=== PATIENT | male | born 1960 | race Caucasian/White ===

== ENCOUNTER 2021-05-18 12:54 | Observation (INO) | payer BC ==
[2021-05-18] MEDS ORDERED: Acetaminophen 650 MG Suppository PR PRN (15:24)
[2021-05-18] MEDS ORDERED: Ondansetron ODT 4 MG TAB PO PRN (15:24)
[2021-05-18] MEDS ORDERED: Acetaminophen 325 MG TAB PO PRN (15:24)
[2021-05-18] MEDS ORDERED: Albuterol Sulfate 2.5 mg/3 ml Neb NEB PRN (15:24)
[2021-05-18] MEDS ORDERED: Ondansetron PF 4 MG/2 ML Vial IVP PRN (15:24)
[2021-05-18 15:44] VITALS: BMI 22.6
[2021-05-18] MEDS ORDERED: cefTRIAXone\\ROCEPHIN 1 GM in Sodium Chloride 0.9% 100 ML IVPB SCH (17:00)
[2021-05-18] MEDS: methylPREDNISolone Sod Succ 40 MG VIAL IVP SCH (17:22)
[2021-05-18] MEDS ORDERED: Benzonatate 100 MG CAP PO PRN (17:37)
[2021-05-18] MEDS ORDERED: Azithromycin 500 MG in Sodium Chloride 0.9% 250 ML 250 ML IVPB SCH (18:00)
[2021-05-18 18:16] LABS: SARS-CoV-2 NAA Rapid Test Not Detected (NotDetected)
[2021-05-18] MEDS ORDERED: Ibuprofen 400 MG TAB PO PRN (18:41)
[2021-05-18 19:37] LABS: Legionella Urinary Ag Negative (Negative); Strep pneumo Urine Ag NEGATIVE (NEGATIVE)
[2021-05-18 19:52] LABS: CKMB 0.8 ng/mL (0-6.6)
[2021-05-19] MEDS: methylPREDNISolone Sod Succ 40 MG VIAL IVP SCH ×2 (01:11→06:01)
[2021-05-19 05:09] LABS: Anion Gap 10 mmol/L (10-20); BUN (Urea Nitrogen) 11 mg/dL (8.4-25.7); Calc. Creatinine Clearance 127 mL/min (70-130); Calcium 8.9 mg/dL (7.8-10.44); Carbon Dioxide 27 mmol/L (22-29); Cardiac Risk 2.6 (Less than 4.5); Chloride 105 mmol/L (98-107); Cholesterol 133 mg/dl (< 200 Desired); Glucose 165 mg/dL (70-105); HDL Cholesterol 52 mg/dL (>60 Neg Risk); LDL Cholesterol, Calculated 73 mg/dL; Potassium 4.1 mmol/L (3.5-5.1); Sodium 138 mmol/L (136-145); Triglycerides 39 mg/dL (Less than 150)
[2021-05-19 05:10] LABS: #Monocytes 2.5 10x3/uL (0.0-1.1); #Neutrophils 2.9 10x3/uL (1.5-8.4); %Basophils 0.1 % (0.0-2.0); %Eosinophils 0.3 % (0.0-6.0); %Lymphocytes 19.4 % (18.0-47.0); %Monocytes 35.2 % (0.0-10.0); Hemoglobin 11.6 g/dL (13.5-17.5); Mean Platelet Volume 9.7 fl (7.4-10.4); RBC Distribution Width 15.6 % (11.5-14.5); Red Blood Cell (RBC) Count 3.87 10x6/uL (4.32-5.72); White Blood Cell (WBC) Count 6.9 10x3/uL (3.5-10.5)
[2021-05-19 05:11] LABS: Platelet Count 142 10x3/uL (150-450)
[2021-05-19] MEDS ORDERED: Aspirin 81 mg Enteric Coated Tablet PO SCH (09:00)
[2021-05-19 12:15] VITALS: BP 110/63; TEMP 98.1
== END 2021-05-19 12:36 | disposition home or self-care (01) ==
LOC: CSHTELE 14:30
PROVIDERS: ADMIT Internal Medicine; ATTEND Internal Medicine
DX: J44.1 Chronic obstructive pulmonary disease with (acute) exacerbation (principal); R07.81 Pleurodynia; F17.210 Nicotine dependence, cigarettes, uncomplicated; R77.8 Other specified abnormalities of plasma proteins; I10 Essential (primary) hypertension; E78.5 Hyperlipidemia, unspecified; Z20.822 Contact with and (suspected) exposure to COVID-19; Z79.899 Other long term (current) drug therapy
CPT/HCPCS: 0241U; 36415; 80048; 80061; 82553; 85025; 87070; 87205; 87449; 87899; 94640; 94760; 96374; 96375; 96376; G0378; J0456; J0696; J2920; J3490; J7050; J7611; J7620